=== PATIENT | male | born 1945 | race Caucasian/White ===

== ENCOUNTER 2016-08-21 11:28 | Emergency (ER) | payer MEDICARE ==
[2016-08-21 13:14] VITALS: BP 150/79
--- NOTE | 2016-08-21 13:27 | UC ---
UC General HPI - History of Current Complaint Chief Complaint: UCSkin Stated Complaint: SKIN COMPLAINT Time Seen by Provider: 08/21/16 13:21 - Allergy/Home Medications Allergies/Adverse Reactions: Allergies Allergy/AdvReac Type Severity Reaction Status Date / Time No Known Allergies Allergy Verified 08/21/16 12:56 Home Medications: Home Medications Amiodarone TAB* [Cordarone TAB*] 100 mg PO EVERY OTHER DAY 08/21/16 [History Confirmed 08/21/16] Lisinopril TAB* [Prinivil TAB*] 20 mg PO DAILY 08/21/16 [History Confirmed 08/21] Omeprazole CAP* [Prilosec CAP* 20 MG] 40 mg PO DAILY 08/21/16 [History Confirmed 08/21/16] Simvastatin [Zocor 40 MG (NF)] 20 mg PO QPM 08/21/16 [History Confirmed 08/21/16 ] Tamsulosin CAP* [Flomax CAP*] 0.4 mg PO DAILY 08/21/16 [History Confirmed ] Warfarin TAB(*) [Coumadin TAB(*)] 3 mg PO 1700 08/21/16 [History Confirmed 08/21] glipiZIDE TAB* [Glucotrol TAB*] 10 mg PO DAILY 08/21/16 [History Confirmed 08/21] PMH/Surg Hx/FS Hx/Imm Hx Endocrine History Of: Reports: Diabetes Cardiovascular History Of: Reports: Cardiac Disorders - Afib, Hypertension - Surgical History Surgical History: Yes Surgery Procedure, Year, and Place: left inguinal hernia repair - Social History Alcohol Use: Occasionally Substance Use Type: None Smoking Status (MU): Former Smoker Length of Time of Smoking/Using Tobacco: quit about age 51 Physical Exam Vital Signs: Initial Vital Signs Temp 97.6 F 08/21/16 12:47 Pulse 45 08/21/16 12:47 Resp 16 08/21/16 12:47 BP 145/75 08/21/16 12:47 Pulse Ox 98 08/21/16 12:47
--- NOTE | 2016-08-21 13:38 | UC ---
General HPI - HPI Summary HPI Summary: The patient comes in today for: 1. Rash: Onset: 2 weeks. Palliative/provocative: He has tried alcohol, Lotrimin, BenGay, H2O2, and the best was Lotrimin--using about every other day. Quality: Itching Region: Right lateral leg. Severity: 5/10 itching. Time: Constant. Associated symptoms: 2. Bradycardia: Onset: 6 months ago. Palliative/provocative: Changing medications makes it better. Quality: Lightheaded, like he is going to faint. No chest pain. No dyspnea. Region: CVS Severity: no pain Time: Constant. Associated symptoms: No known [place], bypasses or stents. He had a stress test 20 years ago. He has seen his primary care provider for this and a local body joiner, but he has had problems regulating his heart. He last saw his body joiner 3-4 months ago. But, there has been an ongoing argument about medical management around his heart treatment. He states the last time his pulse rate was this low, he ended up in the hospital. He has been on lowering doses of amiodarone. * - History of Current Complaint Chief Complaint: UCSkin Stated Complaint: SKIN COMPLAINT Time Seen by Provider: 08/21/16 13:21 Hx Obtained From: Patient - Allergy/Home Medications Allergies/Adverse Reactions: Allergies Allergy/AdvReac Type Severity Reaction Status Date / Time Clonidine Allergy Palpitation Verified 08/21/16 13:43 s Home Medications: Home Medications Amiodarone TAB* [Cordarone Tab*] 100 mg PO EVERY OTHER DAY 08/21/16 [History Confirmed 08/21/16] Lisinopril TAB* [Prinivil TAB 10 MG*] 20 mg PO DAILY 08/21/16 [History Confirmed 08/21/16] Omeprazole CAP* [Prilosec CAP* 20 MG] 40 mg PO DAILY 08/21/16 [History Confirmed 08/21/16] Simvastatin [Zocor 40 MG (NF)] 20 mg PO QPM 08/21/16 [History Confirmed 08/21/16 ] Warfarin TAB(*) [Coumadin TAB(*)] 3 mg PO 1700 08/21/16 [History Confirmed 08/21] glipiZIDE TAB* [Glucotrol TAB*] 10 mg PO DAILY 02/05/17 [History Confirmed 08/21] PMH/Surg Hx/FS Hx/Imm Hx Endocrine History Of: Reports: Diabetes, Dyslipidemia Denies: Thyroid Disease, Hyperthyroidism, Hypothyroidism Cardiovascular History Of: Reports: Cardiac Disorders - HIstory of afib and bradycardia., Hypertension Denies: Pacemaker/ICD, Myocardial Infarction, Congestive Heart Failure, Atrial Fibrillation, Deep Vein Thrombosis, Bleeding Disorders Respiratory History Of: Denies: COPD, Asthma, Bronchitis, Pneumonia, Pulmonary Embolism GI/ History Of: Reports: Gastroesophageal Reflux Denies: Ulcer, Gastrointestinal Bleed, Gall Bladder Disease, Kidney Stones, Diverticulitis, Renal Disease, Urosepsis Neurological History Of: Denies: TIA, CVA, Dementia, Seizures, Migraine Psychological History Of: Denies: Anxiety, Depression, Bipolar Disorder, Schizophrenia, Post Traumatic Stress Disorder Cancer History Of: Denies: Lung Cancer, Colorectal Cancer, Breast Cancer, Prostate Cancer, Cervical Cancer Other History Of: Anticoagulant Therapy - Warfarin Negative For: HIV, Hepatitis B, Hepatitis C - Surgical History Surgical History: Yes Surgery Procedure, Year, and Place: left inguinal hernia repair - Family History Known Family History: Positive: Cardiac Disease, Hypertension - Social History Occupation: Retired Lives: With Family Alcohol Use: Occasionally Substance Use Type: None Smoking Status (MU): Former Smoker Length of Time of Smoking/Using Tobacco: quit about age 51 Review of Systems Constitutional: Negative Skin: Rash Eyes: Eye Redness - He has been seeing civil engineering project designer. ENT: Negative Respiratory: Negative Cardiovascular: Negative Gastrointestinal: Negative Genitourinary: Negative All Other Systems Reviewed And Are Negative: Yes Physical Exam Triage Information Reviewed: Yes Appearance: Well-Appearing, No Pain Distress, Well-Nourished Vital Signs: Initial Vital Signs Temp 97.6 F 08/21/16 12:47 Pulse 45 08/21/16 12:47 Resp 16 08/21/16 12:47 BP 145/75 08/21/16 12:47 Pulse Ox 98 08/21/16 12:47 Vital Signs Reviewed: Yes Eyes: Positive: Conjunctiva Clear. Negative: Discharge ENT: Positive: Hearing grossly normal. Negative: Pharyngeal erythema, Nasal congestion, Nasal drainage, TM bulging, TM dull, TM red, Tonsillar swelling, Tonsillar exudate Dental: Negative: Gross Decay/Caries @, Dental Fracture @ Neck: Positive: Supple, Nontender, No Lymphadenopathy Respiratory: Positive: Lungs clear, No respiratory distress, No accessory muscle use. Negative: Crackles, Wheezing Cardiovascular: Positive: RRR, No Murmur Abdomen Description: Positive: Nontender, No Organomegaly, Soft. Negative: Distended, Guarding Musculoskeletal: Positive: Strength Intact, ROM Intact Neurological: Positive: Alert, Muscle Tone Normal Psychological: Negative: Age Appropriate Behavior, Abnormal Response To Family Skin: Positive: rashes - He has a 1-1.5 cm annular lesion with a raised, red border with central clearing and scale.. Negative: breakdown Diagnostics - Laboratory Diagnostic Studies Completed/Ordered: EKG: Rate: 48. Rhythm: sinus bradycardia. Ectopy: None. Acute changes: None. Course/Dx - Course Course Of Treatment: The patient was told that his rash is consistent with ringworm, but he was told of my concern about his bradycardia and feeling near- syncopal, and his history of having a similar problem which sent him to the hospital. He was told that I recommend the same for further evauation. - Differential Dx - Multi-Symptom Provider Diagnoses: Ringworm. Bradycardia. Discharge - Discharge Plan Condition: Stable Disposition: AGAINST MEDICAL ADVICE Patient Education Materials: Dermatitis (ED), Bradycardia (ED) Referrals: Julio Cesar Meneses MD [Primary Care Provider] - (Please see your primary care provider when you are done with your hospital visit for evaluation of your skin rash.) Additional Instructions: [facility] go directly to the [facility] ER.
== END 2016-08-21 14:13 | disposition left against medical advice (07) ==
LOC: UCCORT 11:28
DX: B35.9 Dermatophytosis, unspecified (principal); R00.1 Bradycardia, unspecified; I10 Essential (primary) hypertension; E11.9 Type 2 diabetes mellitus without complications; K21.9 Gastro-esophageal reflux disease without esophagitis; E78.5 Hyperlipidemia, unspecified; Z86.79 Personal history of other diseases of the circulatory system; Z87.891 Personal history of nicotine dependence; Z79.01 Long term (current) use of anticoagulants; Z88.8 Allergy status to other drugs, medicaments and biological substances
CPT/HCPCS: 93005; 99203; G0463

== ENCOUNTER 2016-12-15 08:01 | Observation (INO) | payer MEDICARE ==
[2016-12-15 08:55] LABS: Hematocrit 45 % (42-52); Hemoglobin 14.5 g/dl (14.0-18.0); Mean Corpuscular HGB Conc 33 g/dl (31-36); Mean Corpuscular Hemoglobin 27 pg (27-31); Mean Corpuscular Volume 82 fL (80-94); Mean Platelet Volume 8 um3 (7.4-10.4); Red Blood Count 5.42 10^6/ul (4.0-5.4); Red Cell Distribution Width 14 % (10.5-15)
[2016-12-15] MEDS ORDERED: Diazepam TAB(*) 5 MG ONE (08:58)
[2016-12-15] MEDS ORDERED: ceFAZolin 2 GM in NS 0.9% 100 ml IVPB ONE (09:00)
[2016-12-15] MEDS ORDERED: ceFAZolin 2 GM PREMIX(*) 2 GM/50 ML BAG IVPB ONE (09:00)
[2016-12-15 09:08] LABS: BUN/Creatinine Ratio 7.5 (8-20); Calcium 9.1 mg/dL (8.6-10.3); EGFR African American 88.8 (>60); EGFR Non-African American 69.1 (>60); Potassium 3.8 mmol/L (3.5-5.0)
[2016-12-15] MEDS ORDERED: Lidocaine 1% INJ* 10 MG/ML 30 ML SDV ONE ×2 (09:44→10:11)
[2016-12-15] MEDS ORDERED: fentaNYL* 50 MCG/ML 2 ML VIAL (100 MCG VIAL) ONE (09:44)
[2016-12-15] MEDS ORDERED: Midazolam* 1 MG/ML 5 ML VIAL (5 MG) ONE (09:44)
[2016-12-15] MEDS ORDERED: Flumazenil* 0.1 MG/ML 5 ML MDV ONE (09:58)
[2016-12-15] MEDS ORDERED: Naloxone* 0.4 MG/ML 1 ML VIAL ONE (09:58)
[2016-12-15] MEDS ORDERED: Iohexol 300 (CONTRAST) 10 ML SDV ONE ×2 (10:02→10:08)
[2016-12-15] MEDS ORDERED: Furosemide TAB* 40 MG PO PRN (12:10)
--- NOTE | 2016-12-15 14:09 | RAD ---
HISTORY: Status post device implant COMPARISONS: None VIEWS:1: Single frontal portable view of the chest at 2:05 PM FINDINGS: LINES AND TUBES: A left-sided pacemaker is noted CARDIOMEDIASTINAL SILHOUETTE: The cardiomediastinal silhouette is normal for portable technique. PLEURA: The costophrenic angles are sharp. No pleural abnormalities are noted. LUNG PARENCHYMA: The lungs are clear. ABDOMEN: The upper abdomen is clear. There is no subphrenic gas. There is no appreciable pneumothorax. BONES AND SOFT TISSUES: No bone or soft tissue abnormalities are noted. IMPRESSION: NO ACTIVE CARDIOPULMONARY DISEASE.
[2016-12-15] MEDS: ceFAZolin VIAL(*) 1 GM in D5W 50 ML BAG* 50 ML IVPB SCH (17:00)
[2016-12-15] MEDS: Acetaminophen TAB* 325 MG PO PRN (17:00)
[2016-12-15] MEDS ORDERED: Atorvastatin* 10 MG TAB PO SCH (21:00)
[2016-12-16] MEDS: ceFAZolin VIAL(*) 1 GM in D5W 50 ML BAG* 50 ML IVPB SCH ×2 (00:49→08:30)
[2016-12-16] MEDS: Acetaminophen TAB* 325 MG PO PRN ×2 (01:23→08:29)
[2016-12-16] MEDS ORDERED: Levothyroxine TAB* 25 MCG TAB PO SCH (06:00)
[2016-12-16] MEDS ORDERED: Omeprazole CAP* 20 MG PO SCH (07:30)
[2016-12-16] MEDS ORDERED: glipiZIDE TAB* 5 MG PO SCH (08:00)
[2016-12-16 08:46] VITALS: BP 156/71
--- NOTE | 2016-12-16 08:46 | RAD ---
INDICATION: The patient is status post cardiac implant placement COMPARISON: Similar chest x-ray dated December 15, 2016 TECHNIQUE: PA and lateral views of the chest were obtained. FINDINGS: Again seen is a left upper chest cardiac pacemaker with 2 leads overlying the heart. Surgical skin reagan are again identified. The heart and mediastinum are normal in size and contour. There is no pneumothorax. The lungs are grossly clear. There is no evidence of large pleural effusion. Visualized bones are normal for the patient's age. There is no radiographic evidence of free air beneath the diaphragm IMPRESSION: NO RADIOGRAPHIC EVIDENCE OF ACUTE CARDIOPULMONARY ABNORMALITY STATUS POST LEFT UPPER CHEST CARDIAC PACEMAKER PLACEMENT
[2016-12-16] MEDS ORDERED: Calcium Polycarbophil TAB* 625 MG PO SCH (09:00)
[2016-12-16] MEDS ORDERED: amLODIPine TAB* 5 MG PO SCH (09:00)
--- NOTE | 2016-12-20 01:04 | OP ---
DATE OF OPERATION: 12/15/16 - ROOM #440 DATE OF : 47 SURGEON: Caridad Fabian MD ANESTHESIA: MAC. ESTIMATED BLOOD LOSS: Less than 5 cc. PRE-OP DIAGNOSIS: Sick sinus syndrome. POST-OP DIAGNOSIS: Sick sinus syndrome. OPERATIVE PROCEDURE: INDICATIONS: Risks and benefits were discussed with the patient in the office with his and they were amenable to proceeding. We also discussed details of the case with the patient in the presence of his daughter at the day of the procedure, he was amenable to proceeding. DESCRIPTION OF PROCEDURE: The left subclavian fossa was prepped and draped in the usual sterile fashion and a time-out was called. 10 cc of radiopaque dye was injected in the left upper extremity. The left axillary and subclavian veins outlined. Following this, the patient received local lidocaine in addition to Versed and fentanyl for anesthesia (details on conscious sedation sheet). Following this, using a 10 blade knife, a 2.5 cm incision was made in the left subclavian fossa and extended using Bovie and blunt dissection to the level of the pectoralis muscle. Additionally, lidocaine was infused medially and inferiorly and using blunt dissection, a small pocket was fashioned. Using a modified Seldinger technique, the left subclavian vein was cannulated, took a second injection in the left upper extremity of radiopaque dye to locate the vessel. This was followed by a second guidewire being inserted again a modified Seldinger technique. Using an introducer technique, the right ventricular lead was guided in the RV apex, actively fixed in place and sensing and lead impedance was good, but pacing thresholds were poor. It was repositioned once with some improvement. Using the second guidewire and another introducer, the right atrial lead was then guided to the right atrial appendage, actively fixed in placed with excellent pacing and sensing thresholds. Ventricular leads pacing thresholds did not improve, and in fact worsened when attached to the device, therefore the ventricular lead was guided to a different position higher on the septum instead of the apex. R waves were lower, but pacing threshold was much better. Both leads were then sutured to the pocket using 0 silk suture and the leads were attached to the device. The device was placed in the pocket following copious irrigation and the incision was closed using 2 layers of resorbable suture, 2-0 followed by 4-0, followed by reagan and an external dressing. FINDINGS: The system is an MRI compatible Medtronic system. The atrial lead is a Medtronic model 5076-52, serial number [id number] with P-waves sensed at 5.8 millivolts and atrial lead impedance of 597 ohms and an atrial pacing threshold of 1.2 V at 0.5 milliseconds. The ventricular lead is a Medtronic model 5076-58, serial number [id number] with R-waves sensed at 3.1 millivolts and ventricular lead impedance of 990 ohms and a ventricular pacing threshold of 0.9 V at 0.5 milliseconds. The pacemaker device is a Medtronic model A2DR01 serial number [id number]. He was programed in DDD mode with a low rate of 60 beats a minute to go to the floor. The patient was hemodynamically stable throughout the procedure and on transfer. There were no complications. [id number]/[facility] #: [id number] MAVIS
--- NOTE | 2016-12-28 12:51 | DS ---
CC: Dr. Meneses; Dr. Solares DISCHARGE SUMMARY: DATE OF ADMISSION: DATE OF DISCHARGE: 12/16/16. HISTORY OF PRESENT ILLNESS AND HOSPITAL COURSE: Mr. Barnes is a 71-year-old gentleman admitted for elective pacemaker. The patient had a near-syncopal episode in the shower and a Holter monitor from August 2016 showed sinus bradycardia with an average heart rate of 43 beats a minute with pauses up to 2 seconds. He was admitted for additional workup that was negative for atherosclerotic heart disease and he had an ejection fraction of 50% on an echocardiogram and 55% on a nuclear study. The patient underwent implantation of a dual chamber MRI compatible device without complications and did well overnight and is ambulating well. PAST MEDICAL HISTORY: The patient has a past medical history of hypertension, adult-onset diabetes, reflux, dyslipidemia, obesity, neuropathy, possible TIA, paroxysmal atrial fibrillation 09/28/15, o bstructive sleep apnea. PAST SURGICAL HISTORY: Includes, inguinal hernia repair, deviated septum. See admission history and physical for full social and family history. MEDICATIONS ON ADMISSION: Included, 1. Lasix 40 mg a day. 2. Glipizide ER 15 mg a day. 3. Omeprazole 40 mg a day. 4. Simvastatin 20 mg daily. 5. Coumadin 3 mg as directed (on hold). 6. FiberCon 625 mg a day. 7. Levothyroxine 25 mcg a day. 8. Amlodipine 5 mg a day. 9. Tylenol p.r.n. ALLERGIES: Included CLONIDINE and METFORMIN. PHYSICAL EXAMINATION: On the day of discharge, blood pressure 156/71, pulse of 60 and regular, resp iratory rate 20, oxygen saturation 93% on room air and he is afebrile throughout his stay. He is 5 feet 7 inches, weighs 241 pounds with a BMI of 38. General Appearance: The patient is a centripeta lly obese and overweight older gentleman. He appeared comfortable in no acute distress. Psychologi hudson, calm, cooperative, pleasant. Neurologically, awake, alert, and oriented to person, place, an d time. Cranial nerves II to XII intact. Grossly normal sensory motor function in the upper and lo wer extremities and gait was normal. Skin: No cyanosis. Incision in the left subclavian fossa was free of infection, hematoma, or ecchymosis. Breath sounds were clear in all issa. No wheezes, r ales or rhonchi. Coronary: S1 and S2 regular without murmurs or rubs. Abdomen: Nontender and acti ve bowel sounds. Lower Extremities: Free of edema. LABORATORY DATA: Labs from 12/15/16, white count 7, hemoglobin 14.5, platelets 227. INR was 1.06. Sodium 137, potassium 3.8, chloride 102, bicarb 29, BUN 8, creatinine 1.01 and glucose 188. On the day of discharge the patient underwent pacemaker interrogation, chest x-ray, and telemetry mo nitoring was reviewed. He had a MRI compatible Medtronic system implanted, model A2DR1, serial # [id number]. On the day of discharge P-waves are sensed at 5.9 millivolts with an atrial lead impedanc e of 494 ohms and an atrial pacing threshold is 0.5 volts at 0.4 milliseconds. The R-waves are sens ed at 4.8 millivolts with ventricular lead impedance of 627 ohms and a ventricular pacing threshold of 0.5 volt at 0.4 milliseconds. Discharge programming was AAIR/DDDR with low rate of 60 beats a mi nute. Chest x-rays were reviewed and showed no pneumothorax and good lead placement, and telemetry showed good pacer function as did the patient's EKGs. DISCHARGE INSTRUCTIONS: The patient was discharged on the above home medications in addition to Kef gricelda 500 mg t.i.d. for 5 days. He was advised to resume his Coumadin. Written and verbal instructio ns about pacemaker care were provided and the patient was scheduled for an outpatient wound check wi thin a week. In summary, the patient was admitted for dual chamber pacemaker implantation that was uncomplicated and the patient did well. [id number]/[facility] #: [id number]
== END 2016-12-16 10:27 | disposition home or self-care (01) ==
LOC: CHICATH 08:01 → MEDTELE 12:05
PROVIDERS: ADMIT Specialist; ATTEND Specialist
DX: R00.1 Bradycardia, unspecified (principal); I11.0 Hypertensive heart disease with heart failure; I50.9 Heart failure, unspecified; E11.9 Type 2 diabetes mellitus without complications; K21.9 Gastro-esophageal reflux disease without esophagitis; E78.00 Pure hypercholesterolemia, unspecified; E78.5 Hyperlipidemia, unspecified; I48.91 Unspecified atrial fibrillation; N40.0 Benign prostatic hyperplasia without lower urinary tract symptoms; Z79.84 Long term (current) use of oral hypoglycemic drugs; Z79.01 Long term (current) use of anticoagulants; Z79.899 Other long term (current) drug therapy
CPT/HCPCS: 33228; 36415; 71010; 71020; 80048; 85027; 85610; 85730; 93005; A9270-GY; C1785; C1898; G0378; J0690; J2001; J2250; J2310; J3010; Q9967

== ENCOUNTER 2018-04-08 11:26 | Emergency (ER) | payer MEDICARE ==
--- NOTE | 2018-04-08 11:51 | ED ---
Back Pain - HPI Summary HPI Summary: A 72 y/o male accompanied by his presents to ED c/o right lower back pain reaching 9/10 in severity. As per triage, "back pain L4/5 with bulge on right side. Pt states old injury that has come back this week. Difficulty ambulating and moving. Tylenol at home for pain". According to the patient, he has been putting up with his back pain for the last 2 weeks. Throughout that time, he has been calming his right lower back pain with icy/hot packs, however today it has become much worse. Additionally, there is a bulge in his right lower back. He stated that went he does regular routine activities or even when he coughs/ passes gas the pain hurts as it "grabs ahold and shakes". Patient denies any issues with urination or BM. Also denies any pain in leg area, but the pain does radiate slightly to his right buttock area. As per , the patient has been helping their daughter move lately. PMHx of pacemaker (left chest) placed approximately 1 year ago, high blood pressure, high cholesterol and DM. SHx of no smoking for 20 years, ETOH once per month (beer) and no recreational drugs, only prescribed medications - History of Current Complaint Chief Complaint: EDBackInjuryPain Stated Complaint: BACK PAIN Time Seen by Provider: 04/08/18 11:39 Hx Obtained From: Patient Onset/Duration: Lasting Weeks, Still Present, Worse Since Onset/Duration: Started Weeks Ago, Still Present Timing: Constant Back Pain Location: Is Discrete @ - RIGHT LOWER BACK Severity Initially: Severe Severity Currently: Severe Pain Intensity: 9 Pain Scale Used: 0-10 Numeric Aggravating Symptom(s): Movement, Cough Alleviating Symptom(s): Other - ICY/HOT PACKS Associated Signs And Symptoms: Positive: Negative - Allergies/Home Medications Allergies/Adverse Reactions: Allergies Allergy/AdvReac Type Severity Reaction Status Date / Time clonidine Allergy Palpitation Verified 04/08/18 11:45 s metformin Allergy Diarrhea Verified 04/08/18 11:45 Home Medications: Home Medications Linagliptin (NF) [Tradjenta (NF)] 5 mg PO DAILY 04/08/18 [History Confirmed ] Metoprolol Succinate 50 mg PO BEDTIME 04/08/18 [History Confirmed 04/08/18] Tamsulosin CAP* [Flomax CAP*] 0.4 mg PO DAILY 04/08/18 [History Confirmed ] PMH/Surg Hx/FS Hx/Imm Hx Endocrine/Hematology History: Reports: Hx Anticoagulant Therapy - Warfarin, Hx Diabetes Denies: Hx Thyroid Disease Cardiovascular History: Reports: Hx Hypercholesterolemia, Hx Hypertension, Hx Pacemaker/ICD - 12/15/16 Denies: Hx Congestive Heart Failure, Hx Deep Vein Thrombosis, Hx Myocardial Infarction Respiratory History: Denies: Hx Asthma, Hx Chronic Obstructive Pulmonary Disease (COPD), Hx Lung Cancer, Hx Pneumonia, Hx Pulmonary Embolism GI History: Denies: Hx Gall Bladder Disease, Hx Gastrointestinal Bleed, Hx Ulcer, Hx Urosepsis History: Denies: Hx Kidney Stones, Hx Renal Disease Sensory History: Reports: Hx Contacts or Glasses Denies: Hx Hearing Aid Opthamlomology History: Reports: Hx Contacts or Glasses Neurological History: Denies: Hx Dementia, Hx Migraine, Hx Seizures, Hx Transient Ischemic Attacks (TIA) Psychiatric History: Denies: Hx Anxiety, Hx Depression, Hx Schizophrenia, Hx Bipolar Disorder - Surgical History Surgery Procedure, Year, and Place: left inguinal hernia repair Infectious Disease History: No Infectious Disease History: Denies: Hx Clostridium Difficile, Hx Hepatitis, Hx Human Immunodeficiency Virus (HIV), Hx of Known/Suspected MRSA, Hx Shingles, Hx Tuberculosis, Hx Known/ Suspected VRE, Hx Known/Suspected VRSA, History Other Infectious Disease, Traveled Outside the [place] in Last 30 Days - Family History Known Family History: Positive: Cardiac Disease, Hypertension - Social History Alcohol Use: Occasionally Alcohol Amount: 1 MONTH Substance Use Type: Reports: None Smoking Status (MU): Former Smoker Type: Cigarettes Amount Used/How Often: 1PCK/DAY Length of Time of Smoking/Using Tobacco: quit about age 51 Have You Smoked in the Last Year: No Review of Systems Negative: Fever Positive: no symptoms reported Positive: Other - POSITIVE: Right lower back pain radiating slightly to right buttock; NEGATIVE: leg pain All Other Systems Reviewed And Are Negative: Yes Physical Exam - Summary Physical Exam Summary: VITAL SIGNS: Reviewed. GENERAL: Patient is a well-developed and nourished male who is lying comfortable in the stretcher. Patient is not in any acute respiratory distress. Patient straight leg test was negative. HEAD AND FACE: No signs of trauma. No ecchymosis, hematomas or skull depressions. No sinus tenderness. EYES: PERRLA, EOMI x 2, No injected conjunctiva, no nystagmus. EARS: Hearing grossly intact. Ear canals and tympanic membranes are within normal limits. MOUTH: Oropharynx within normal limits. NECK: Supple, trachea is midline, no adenopathy, no JVD, no carotid bruit, no c- spine tenderness, neck with full ROM. CHEST: Symmetric, no tenderness at palpation LUNGS: Clear to auscultation bilaterally. No wheezing or crackles. CVS: Regular rate and rhythm, S1 and S2 present, no murmurs or gallops appreciated. ABDOMEN: Soft, non-tender. No signs of distention. No rebound no guarding, and no masses palpated. Bowel sounds are normal. EXTREMITIES: FROM in all major joints, no edema, no cyanosis or clubbing. Right paraspinal muscle tenderness. NEURO: Alert and oriented x 3. No acute neurological deficits. Speech is normal and follows commands. SKIN: Dry and warm Triage Information Reviewed: Yes Vital Signs On Initial Exam: Initial Vitals Temp Pulse Resp BP Pulse Ox 97 F 80 14 144/83 96 04/08/18 11:30 04/08/18 11:30 04/08/18 11:30 04/08/18 11:30 04/08/18 11:30 Vital Signs Reviewed: Yes Diagnostics - Vital Signs Vital Signs Temp Pulse Resp BP Pulse Ox 04/08/18 11:30 97 F 80 14 144/83 96 - Laboratory Lab Statement: Any lab studies that have been ordered have been reviewed, and results considered in the medical decision making process. - Radiology LUMBAR SPINE XR Radiology Interpretation Completed By: Radiologist - Degenerative changes as described above that appear progressed since the September 11, 2008 MRI of the lumbar spine. ED PHYSICIAN REVIEWED THIS RADIOLOGY REPORT. Re-Evaluation - Re-Evaluation First Eval Re-Evaluation Time: 16:01 Comment: DISCUSSED PLAN AND DISCHARGE WITH PATIENT. Back Pain Course/Dx - Course Assessment/Plan: This patient is a 72-year-old male who presents to the emergency department with a chief complaint of having lower back pain. He reports that he has history of chronic back pain for the last 15 years. 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 Pain is 6-7 out of 10. He has nonradiating pain. The patient denies any pain going into the legs, denies any numbness or weakness in the lower extremities. Patient denies any urinary or fecal dysfunction. Patient has no complaints. X ray of the lumbar spine: COMPARISON: MRI of the lumbar spine dated September 11, 2008. TECHNIQUE: 3 views of the lumbar spine were obtained. FINDINGS: The vertebrae are in normal alignment. No fracture is seen. There is loss of. intervertebral disc height the lower thoracic and upper lumbar spine as well as anterior. marginal osteophyte formation at L1/ L2. There is loss of intervertebral disc height at. L4/L5 and L5/S1. IMPRESSION: Degenerative changes as described above that appear progressed since the September 112008 MRI of the lumbar spine. In the ED course he was given Fentanyl for the pain and Norflex for the back spasm. After medications the patient's symptoms have significantly improved. The patient is able to ambulate with no significant pain. Since the x-ray shows no acute fracture dislocation the patient will be discharged home with follow-up with primary care physician. The patient is hemodynamically stable alert and oriented 3. I discussed all the findings and test results with the patient. Patient was instructed to return to the emergency room immediately if any of the symptoms return or worsens. Plan of care was discussed with the patient and understands and agrees. All questions were answered at patient satisfaction. There were no further complaints or concerns. Lung exam before discharge: CTA B /L. Good air exchange. No wheezing or crackles heard. CVS: S1 and S2 present. No murmurs appreciated. Patient is alert and oriented x 3. Patient is hemodynamically stable. Patient will be discharged home with follow up PCP in the next 2-3 days - Diagnoses Differential Diagnosis/HQI/PQRI: Positive: Arthritis, Cauda Equina Syndrome, Compressive Cord Syndrome, Fracture, Herniated Disc, Strain, Sprain Provider Diagnoses: Back pain Discharge - Sign-Out/Discharge Documenting (check all that apply): Patient Departure - DISCHARGE - Discharge Plan Condition: Stable Disposition: HOME Prescriptions: Methocarbamol TAB* [Robaxin 500 MG TAB*] 500 mg PO TID PRN #12 tab PRN Reason: Pain oxyCODONE/Acetamin 5/325 MG* [Percocet 5/325 TAB*] 1 tab PO Q6H PRN #12 tab MDD 4 PRN Reason: Pain Patient Education Materials: Back Pain (ED) Referrals: Julio Cesar Meneses MD [Primary Care Provider] - 2 Days Additional Instructions: FOLLOW UP WITH PRIMARY CARE PHYSICIAN IN 2-3 DAYS. TAKE MEDICATIONS PRESCRIBED. RETURN TO ED FOR ANY NEW OR WORSENING SYMPTOMS. FOLLOW UP WITH YOUR PRIMARY CARE PROVIDER WITHIN ONE WEEK FOR HIGH BLOOD PRESSURE NOTED TODAY. - Billing Disposition and Condition Condition: STABLE Disposition: Home - Attestation Statements Document Initiated by Broderick: Yes Documenting Scribe: Judah Barroso Provider For Whom Broderick is Documenting (Include Credential): Natan Obregon MD Scribe Attestation: Judah Velez, scribed for Natan Obregon MD on 04/09/18 at 1131. Scribe Documentation Reviewed: Yes Provider Attestation: The documentation as recorded by the Judah rucker accurately reflects the service I personally performed and the decisions made by me, Natan Obregon MD
--- OUTSIDE RECORDS SUMMARY | 2018-04-08 12:07 | XMS REPORT ---
:1945 External Reference #:[id number] Author Organization [facility] 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 Active Onset: 01/19/2016 Sprain of shoulder and upper arm Bry Ortiz M.D. Active Onset: 01/27/2016 Edema Renny Easley M.D., Active FACC Onset: 01/28/2016 Full thickness rotator cuff tear Bry Ortiz M.D. Active Onset: 02/23/2016 Dislocations/sprains/strains Bry Ortiz M.D. Active Onset: 05/03/2017 Kapadia's esophagus Luis Barber MD Active Onset: 05/03/2017 Heartburn Luis Barber MD Active Onset: 05/03/2017 Flatulence, eructation and gas Luis Barber MD Active pain Onset: 05/31/2017 Gastroduodenitis Luis Barber MD Active Onset: 11/27/2017 Benign prostatic hypertrophy with Odilia Campbell M.D. Active outflow obstruction Onset: 11/27/2017 Psychogenic impotence Odilia Campbell M.D. Active Family History Date Family Member(s) Problem(s) Comments General Cancer General Diabetes Father Esophagus Cancer Mother Diabetes Mellitus Type 2 Mother Cellulitis Social History Type Date Description Comments Marital Status Lives With Luisana Home Environment Lives With spouse Diet Patient is on a diabetic diet Occupation Negative For Currently Working full-time [employer] Occupation Retired Work Status Retired ADL's/IADL's Independent with all ADL's ADL's/IADL's Independent with all IADL's Cigarette Use 1994 Quit Was 1 ppd for 30-40 years. Smokeless Tobacco Never Used Smokeless Tobacco ETOH Use Rarely consumes alcohol Smoking Patient is a former smoker QUIT age 51 Recreational Drug Use Denies Drug Use Daily Caffeine Consumes on average 1 cup of regular coffee per day Allergies, Adverse Reactions, Alerts Date Description Reaction Status Severity Comments Clonidine Hypotension, High HR active Medications Medication Date Status Form Strength Qnty SIG Indications Ordering Provider Vesicare 03/15/ Active Tablets 5mg 30tab 1 by mouth Radha Campbell s every day Elder Hartley Omeprazole / Active Capsules 40mg 90cap 1 po qd Unknown [address] DR kellogg Fiber / Active Capsules 0.52gm 1 caps po Unknown 0000 qd Glimepiride / Active Tablets 10mg 3 by mouth Unknown 0000 every day Simvastatin / Active Tablets 20mg 1 by mouth Unknown 0000 every day Levothyroxine / Active Tablets 25mcg 1 and 1/2 Unknown Sodium 0000 by mouth every day Warfarin Sodium / Active Tablets 3mg 1 tab by Unknown 0000 mouth every day or as instructed otherwise per inr Metoprolol / Active Tablets ER 25mg 2 by mouth Unknown Succinate ER 0000 24HR every day Tradjenta / Active Tablets 5mg 1 po daily Malakar, 0000 MD Julio Cesar Tamsulosin HCL / Active Capsules 0.4mg Take 1 Unknown 0000 Capsule By Mouth Everyday AT Bedtime Oxybutynin / Active Tablets 5mg 7tabs take one Unknown Chloride 0000 tablet by mouth q day Fluconazole 03/01/ Hx Tablets 200mg 1tabs 1 by mouth Shannan 2018 - once Laciemokrista, 03/15/ M.DPedro 2017 Cipro 01/01/ Hx Tablets 500mg 6tabs 1 tab by Shannan, 2018 - mouth twice Laciemokrista, day, MBeth 2018 start day before procedure Enema 01/01/ Hx Enema 7-19GM/118 133ml morning of Shannan 2017 - ML procedure. Odilia, 02/15/ M.DPedro 2018 Amiodarone HCL 05/03/ Hx Tablets 100mg 1 by mouth Kaushal 2016 every day , Renny Rothman M.D., [facility] Baclofen 02/22/ Hx Tablets 10mg 15tab 1 tab by Diana 2015 s mouth three , times a day Bry, as needed M.D. Hydrocodone-Johnathon 01/27/ Hx Tablets 5-325mg 10tab 1 tab by Steencjose taminophen 2015 - s mouth every , 02/22/ 6 hours as Bry, 2016 needed M.D. Eliquis 01/13/ Hx Tablets 5mg 60tab 1 tab by I48.0 Beckett, 2016 - s mouth twice Leigh 02/22/ a day Monica García , MSN, HEAVY MEDIA OPERATOR Amiodarone HCL 10/01/ Hx Tablets 200mg 90tab take 1 PO Kaushal 2016 - s qd , Renny Elder Rothman, 2017 [facility] Xarelto 10/01/ Hx Tablets 20mg 30tab 1 by mouth I48.0 Kaushal 2016 s every day , Renny Rothman M.D., FACC Toprol XL 00/00/ Hx Tablets ER 50mg 90tab 1/2 po qd Beckett, 0000 24HR s Leigh Anderson , MSN, HEAVY MEDIA OPERATOR Lisinopril / Hx Tablets 20mg 90tab 1 po qd Beckett, 0000 s Leigh Anderson , MSN, HEAVY MEDIA OPERATOR Probiotic / Hx Capsules 1 po qd Unknown Formula 0000 Aspirin Ec / Hx Tablets DR 81mg 1 po qd Beckett, 0000 CHRISTIAN Valdez, HEAVY MEDIA OPERATOR Glimepiride / Hx Tablets 2mg 1 po qd Beckett, 0000 CHRISTIAN Valdez, HEAVY MEDIA OPERATOR Tamsulosin HCL / Hx Capsules 0.4mg 1 caps by Unknown 0000 mouth every day Flecainide / Hx Tablets 100mg 1 by mouth Unknown Acetate 0000 - twice a day 2015 Furosemide / Hx Tablets 40mg 1 by mouth Unknown 0000 every day as Needed Xarelto / Hx Tablets 10mg 1 PO Daily I48.0 Unknown 0000 - 2015 Eliquis / Hx Tablets 2.5mg 1 tab by I48.0 Unknown 0000 mouth twice a day Vital Signs Date Vital Result Comment 03/15/2018 BP Systolic 135 mmHg BP Diastolic 83 mmHg Body Temperature 98.5 F Heart Rate 82 /min Respiratory Rate 17 /min Height 67 inches 5'7" Marble body weight in kilograms 67 O2 % BldC Oximetry 95 % Pain Level 0 02/19/2018 BP Systolic 112 mmHg BP Diastolic 77 mmHg Body Temperature 97.2 F Heart Rate 83 /min Respiratory Rate 18 /min Height 67 inches 5'7" Marble body weight in kilograms 67 O2 % BldC Oximetry 95 % Pain Level 10 Penile burning 02/15/2018 BP Systolic 147 mmHg BP Diastolic 96 mmHg Body Temperature 98.6 F Heart Rate 76 /min Respiratory Rate 18 /min Height 67 inches 5'7" Weight 226.00 lb BMI (Body Mass Index) 35.4 kg/m2 BSA (Body Surface Area) 2.13 m2 Marble body weight in kilograms 67 O2 % BldC Oximetry 94 % Pain Level 10 02/13/2018 BP Systolic 139 mmHg BP Diastolic 93 mmHg Body Temperature 97.8 F Heart Rate 87 /min Respiratory Rate 16 /min Height 67 inches 5'7" Weight 226.50 lb BMI (Body Mass Index) 35.5 kg/m2 BSA (Body Surface Area) 2.13 m2 Marble body weight in kilograms 67 O2 % BldC Oximetry 97 % Pain Level 0 11/29/2017 BP Systolic Sitting Left Arm 136 mmHg BP Diastolic Sitting Left Arm 90 mmHg Heart Rate 80 /min Respiratory Rate 16 /min Height 67 inches 5'7" Weight 229.00 lb BMI (Body Mass Index) 35.9 kg/m2 BSA (Body Surface Area) 2.14 m2 Marble body weight in kilograms 67 11/27/2017 BP Systolic 143 mmHg BP Diastolic 84 mmHg Body Temperature 98.5 F Heart Rate 74 /min Respiratory Rate 18 /min Height 67 inches 5'7" Weight 228.00 lb BMI (Body Mass Index) 35.7 kg/m2 BSA (Body Surface Area) 2.14 m2 Marble body weight in kilograms 67 O2 % BldC Oximetry 94 % Pain Level 0 05/31/2017 BP Systolic Sitting Left Arm 120 mmHg BP Diastolic Sitting Left Arm 84 mmHg Heart Rate 66 /min Respiratory Rate 16 /min Height 67 inches 5'7" Weight 234.00 lb BMI (Body Mass Index) 36.6 kg/m2 BSA (Body Surface Area) 2.16 m2 Marble body weight in kilograms 67 05/03/2017 BP Systolic Sitting Left Arm 136 mmHg BP Diastolic Sitting Left Arm 70 mmHg Heart Rate 77 /min Respiratory Rate 16 /min Height 67 inches 5'7" Weight 238.00 lb BMI (Body Mass Index) 37.3 kg/m2 BSA (Body Surface Area) 2.18 m2 Marble body weight in kilograms 67 01/27/2016 BP Systolic Sitting Left Arm 122 mmHg BP Diastolic Sitting Left Arm 68 mmHg Heart Rate 52 /min Respiratory Rate 16 /min Height 67 inches 5'7" Weight 253.00 lb BMI (Body Mass Index) 39.6 kg/m2 BSA (Body Surface Area) 2.23 m2 01/19/2016 BP Systolic 113 mmHg BP Diastolic 65 mmHg Heart Rate 54 /min Height 67 inches 5'7" Weight 252.00 lb BMI (Body Mass Index) 39.5 kg/m2 BSA (Body Surface Area) 2.23 m2 Marble body weight in kilograms 67 01/14/2016 BP Systolic Sitting Left Arm 124 mmHg BP Diastolic Sitting Left Arm 72 mmHg Heart Rate 51 /min Height 68 inches 5'8" Weight 253.00 lb BMI (Body Mass Index) 38.5 kg/m2 BSA (Body Surface Area) 2.26 m2 Marble body weight in kilograms 70 12/10/2015 BP Systolic Sitting Right Arm 120 mmHg BP Diastolic Sitting Right Arm 62 mmHg Heart Rate 52 /min Respiratory Rate 16 /min Height 68 inches 5'8" Weight 250.00 lb BMI (Body Mass Index) 38.0 kg/m2 BSA (Body Surface Area) 2.25 m2 10/14/2015 BP Systolic Sitting Left Arm 126 mmHg BP Diastolic Sitting Left Arm 66 mmHg Heart Rate 52 /min Respiratory Rate 16 /min Height 68 inches 5'8" Weight 259.00 lb BMI (Body Mass Index) 39.4 kg/m2 BSA (Body Surface Area) 2.28 m2 10/02/2015 BP Systolic Sitting Left Arm 122 mmHg BP Diastolic Sitting Left Arm 78 mmHg Heart Rate 112 /min Height 68 inches 5'8" Weight 257.00 lb BMI (Body Mass Index) 39.1 kg/m2 BSA (Body Surface Area) 2.27 m2 11/03/2010 BP Systolic Sitting Left Arm 118 mmHg BP Diastolic Sitting Left Arm 60 mmHg Heart Rate 62 /min Respiratory Rate 16 /min Height 67.5 inches 5'7.50" Weight 240.00 lb BMI (Body Mass Index) 37.0 kg/m2 05/05/2010 BP Systolic Sitting Right Arm 118 mmHg BP Diastolic Sitting Right Arm 64 mmHg Heart Rate 58 /min Respiratory Rate 16 /min Height 67.5 inches 5'7.50" Weight 231.00 lb BMI (Body Mass Index) 35.6 kg/m2 04/05/2010 Heart Rate 59 /min Respiratory Rate 16 /min Weight 219.00 lb Results Test Date Test Result H/L Range Note Urine Dipstick 03/15/2018 Ua Color dark yellow Yellow Ua Clarity clear Clear Ua Leuko 15 Reema/uL High Negative Ua Nitrite Negative Negative Ua Urobilinogen 17 umol/L High 0.2 - 1.0 E.U./dL Ua Protein 0.3 G/l High Negative Ua PH 5.0 Low 6.5-7.5 Ua Blood 200 Isael/uL High Negative Ua Specific [place] 1.030 1.010-1.030 Ua Ketones Negative Negative Ua Bilirubin Negative Negative Ua Glucose 30 mmol/L High Negative Urine Culture 02/27/2018 Urine Culture YEAST LIKE ORGAN <SEE NOTE> 1, 2 Quantity 50,000 - 100,000 <SEE NOTE> 1, 3 Urine Culture URETHRAL CHRISTOPHER 1 Quantity 10,000 - 50,000 <SEE NOTE> 1, 4 Protime 02/12/2018 Protime 14.8 seconds High 12.0-14.4 5 Inr 1.2 High 0.9-1.1 5, 6 Anticoagulant Therapy? YES 5 Date of Last Dose: U 5 Time of Last Dose: U 5 Protime 2017 Protime 19.7 seconds High 12.0-14.4 7 Inr 1.7 High 0.9-1.1 7, 8 Anticoagulant Therapy? YES 7 Date of Last Dose: T 7 Time of Last Dose: 0730 7 Protime 05/03/2017 Protime 15.8 seconds High 12.0-14.4 9 Inr 1.3 High 0.9-1.1 9, 10 Anticoagulant Therapy? YES 9 Date of Last Dose: 05/03/2017 9 Time of Last Dose: 0830 9 Celiac Disease Comp AB Profile 05/03/2017 Immunoglobulin A < 5 mg/dL Low 61-437 9, 11 Antigliadin Abs, IgG 7 units 0-19 9, 12 Antigliadin Abs, IgA 1 units 0-19 9, 13 Endomysial IgA Antibody Negative Negative 9 t-Transglutaminase IgA <2 U/mL 0-3 9, 14 t-Transglutaminase IgG 3 U/mL 0-5 9, 15 Laboratory test 05/03/2017 Vitamin D,25-Hydroxy 21.5 ng/mL Low 30.0-100.0 9, 16 finding Magnesium 1.9 mg/dL 1.8-2.4 9 1 R31.9 2 YEAST LIKE ORGANISM 3 50,000 - 100,000 CFU/mL 4 10,000 - 50,000 CFU/mL 5 N40.1 6 THERAPEUTIC INR RANGE: 2.0 - 3.0 DVT, Pulmonary embolus, prophylaxis against venous thrombosis or systemic embolization in high risk patients. 2.5 - 3.5 Mechanical heart valves 7 AFIB 8 THERAPEUTIC INR RANGE: 2.0 - 3.0 DVT, Pulmonary embolus, prophylaxis against venous thrombosis or systemic embolization in high risk patients. 2.5 - 3.5 Mechanical heart valves 9 R14.2 K22.70 10 THERAPEUTIC INR RANGE: 2.0 - 3.0 DVT, Pulmonary embolus, prophylaxis against venous thrombosis or systemic embolization in high risk patients. 2.5 - 3.5 Mechanical heart valves 11 Result confirmed on concentration. 12 Negative 0 - 19 Weak Positive 20 - 30 Moderate to Strong Positive >30 13 Negative 0 - 19 Weak Positive 20 - 30 Moderate to Strong Positive >30 14 Negative 0 - 3 Weak Positive 4 - 10 Positive >10 Tissue Transglutaminase (tTG) has been identified as the endomysial antigen. Studies have demonstr- ated that endomysial IgA antibodies have over 99% specificity for gluten sensitive enteropathy. 15 Negative 0 - 5 Weak Positive 6 - 9 Positive >9 Performed at: - [facility] [id number] Irs Agent: Ana Foster MD, Phone: [phone] Vitamin D deficiency has been defined by the [place] of [employer] and an Endocrine Society practice guideline as a level of serum 25-OH vitamin D less than 20 ng/mL (1,2). The Endocrine Society went on to further define vitamin D insufficiency as a level between 21 and 29 ng/mL (2). 1. IOM ([place] [employer]). 2010. Dietary reference intakes for calcium and D. [place]: The National Academies Press. 2. Kandis MF, Thea NC, Yuni RAMIREZ, et al. Evaluation, treatment, and prevention of vitamin D deficiency: an Endocrine Society clinical practice guideline. JCEM. 2010; 96(7):1911-30. Performed at: [facility] [id number] Irs Agent: Ana Foster MD, Phone: [phone] Procedures Date CPT Code Description Status Comment 02/19/2018 56883 Irrigation Of Bladder Completed 02/13/2018 94700 Ultrasound Transrectal Completed 02/13/2018 50106 Unlisted Procedure, Urinary Completed System- Rezum 02/13/2018 44812 Insert Of Temporary Completed Indwelling Bladder Catheter,Simple 11/27/2017 45435 Ultrasound Transrectal Completed 11/27/2017 73906 Measurement Post Voiding Completed Residual Urine By Ultrasound,Non-Imaging 05/11/2017 96453 EGD With Biopsy Completed 08/29/2016 43147 Event Monitor Inter/Review Completed Only 01/20/2016 38406 Holter Monitor 24HR Completed Inter/Report 01/19/2016 72668 Radiology, Shoulder: Two Completed Views (Sso) 01/14/2016 93467 EKG-Tracing And Report Completed 12/10/2015 02106 EKG-Tracing And Report Completed 10/14/2015 61462 EKG-Tracing And Report Completed 10/09/2015 87254 Echocardiogram Complete Completed 10/02/2015 28111 EKG-Tracing And Report Completed 10/02/2015 92804 EKG-Tracing And Report Completed 03/11/2013 Colonoscopy Completed Document: 03/11/13 - Operative Colonoscopy & BX 05/07/2010 Colonoscopy Completed Document: 05/07/10 - Operative Colonoscopy & BX 04/05/2010 66804 EKG-Tracing And Report Completed 03/26/2010 64384 Holter Monitor 24HR Completed Inter/Report 03/26/2010 03446 EKG Interpretation And Report Completed Only 03/21/2010 23377 Echocardiogram Complete Completed 03/20/2010 99297 EKG Interpretation And Report Completed Only 01/24/2006 Colonoscopy Completed Document: 01/24/06 - Operative Colonoscopy Encounters Type Date Location Provider CPT E/M Dx Office Visit 11/29/2017 9:00[place] [address] K22.70 K29.70 R14.2 Office Visit 11/27/2017 11:00a Urology Odilia Campbell M.D. 57378 N40.1 F52.21 Office Visit 05/31/2017 8:15a [place] [address] K22.70 K29.70 R14.2 Office Visit 05/03/2017 9:15a [place] [address] K22.70 R12 R14.2 Office Visit 02/23/2016 1:30p Orthopaedic Office Bry Ortiz, 52368 M25.512 M.DPedro S39.012A Office Visit 01/28/2016 9:30a Orthopaedic Office Bry Ortiz 97024 M75.122 M.DPedro Office Visit 01/27/2016 9:30a Cardiology Office Renny Easley 25032 I10 M.DPedro, [facility] I48.0 G47.30 R60.0 Office Visit 01/19/2016 8:30a Orthopaedic Office Bry Ortiz, 65947 M25.512 M.D. S46.012A Office Visit 01/14/2016 10:40a Cardiology Office Leigh Beckett, 70761 I48.0 MSN, HEAVY MEDIA OPERATOR R60.9 I10 G47.30 E11.65 Office Visit 12/10/2015 9:00a Cardiology Office Leigh Beckett, 84334 I48.0 MSN, HEAVY MEDIA OPERATOR I48.4 I10 R60.9 G47.30 E11.65 Office Visit 10/14/2015 11:40a Cardiology Office Leigh Beckett, 32047 I48.0 MSN, HEAVY MEDIA OPERATOR I48.4 I10 R60.9 G47.30 E11.65 Office Visit 10/02/2015 9:00a Cardiology Office RodrickeligioRenny cabrera, 48503 I48.0 M.D., FACC I48.4 I10 E11.65 Office Visit 09/30/2015 3:29p Cardiology Office Renny Easley, 54762 I48.0 M.D., FACC I48.4 Office Visit 11/03/2010 2:00p Cardiology Office Leigh Beckett, 51296 401.1 MSN, HEAVY MEDIA OPERATOR 786.59 Office Visit 05/05/2010 2:10p Cardiology Office Renny Easley, 15474 401.1 M.D., FACC 785.1 786.59 427.89 Office Visit 04/05/2010 11:00a Cardiology Office Leigh Beckett, 57208 401.1 MSN, HEAVY MEDIA OPERATOR 785.1 Plan of Care Future Appointment(s):03/30/2018 10:30 am - Odilia Campbell M.D. at [email or web address] 9:45 am - Remi Kat MD at GI03/15/2018 - Odilia Campbell M.D.N40.1 Benign prostatic hyperplasia with lower urinary tract sympComments: Patient with bladder spasms status post thermotherapy of the prostate. Should the patient that his urine does not appear to bloody at this point. I told him he should restart his Coumadin. We will do a trial of Vesicare for the frequency. He should follow up with me in 2 weeks. I will send his urine to be reevaluated for a UTI.
[2018-04-08] MEDS ORDERED: Orphenadrine Citrate IV* 30 MG/ML 2 ML VIAL IV ONE (12:29)
[2018-04-08] MEDS ORDERED: fentaNYL* 50 MCG/ML 2 ML VIAL (100 MCG VIAL) IV SLOW PU ONE (12:29)
--- NOTE | 2018-04-08 13:49 | RAD ---
INDICATION: Low back pain following 3 weeks of "extremity physical activity" COMPARISON: MRI of the lumbar spine dated September 11, 2008 TECHNIQUE: 3 views of the lumbar spine were obtained. FINDINGS: The vertebra are in normal alignment. No fracture is seen. There is loss of intervertebral disc height the lower thoracic and upper lumbar spine as well as anterior marginal osteophyte formation at L1/L2. There is loss of intervertebral disc height at L4/L5 and L5/S1. IMPRESSION: Degenerative changes as described above that appear progressed since the September 11, 2008 MRI of the lumbar spine.
[2018-04-08 16:16] VITALS: BP 129/86
== END 2018-04-08 16:15 | disposition home or self-care (01) ==
LOC: ED 11:26
DX: M54.5 Low back pain (principal); Z79.01 Long term (current) use of anticoagulants; Z87.891 Personal history of nicotine dependence; E11.9 Type 2 diabetes mellitus without complications
CPT/HCPCS: 72100; 96374; 96375; 99283; J2360; J3010